=== PATIENT | female | born 1970 ===

== ENCOUNTER → 2017-08-28 | Day surgery (SDC) | payer OTHER ==
[~2017-08-28] MED LIST: BLUE GEL226.8 GM; OSTERA TABLET1 EACH PO; [UNRECOGNIZED DRUG - OTHER] PO
== END | disposition home or self-care (01) ==
LOC: ADM 08-24 08:30 → CIR.AMB 06:05
DX: Z90.13 Acquired absence of bilateral breasts and nipples (principal); E88.1 Lipodystrophy, not elsewhere classified

== ENCOUNTER 2023-01-25 13:10 | Emergency (ER) | payer OTHER ==
[~2023-01-25] VITALS: Ht 162.6 cm; Wt 74.8 kg
== END 2023-01-25 16:47 ==
LOC: ER 13:10
DX: R10.9 Unspecified abdominal pain (principal); Z90.10 Acquired absence of unspecified breast and nipple; Z88.0 Allergy status to penicillin; Z88.6 Allergy status to analgesic agent